=== PATIENT | male | born 1985 | race Caucasian/White ===

== ENCOUNTER 2024-01-10 20:01 | Outpatient (CLI) | payer MEDICAID | END 2024-01-10 23:59 | disposition left against medical advice (07) | LOC: EMS 20:01 | DX: I10 Essential (primary) hypertension (principal); R42 Dizziness and giddiness; R20.2 Paresthesia of skin; F41.9 Anxiety disorder, unspecified ==

== ENCOUNTER 2024-01-10 20:27 | Emergency (ER) | payer BC, MEDICAID ==
[2024-01-10 22:46] LABS: BASOPHILS # (AUTO) 0.1 10^3/uL (0.0-0.1); EOSINOPHILS # (AUTO) 0.2 10^3/uL (0.0-0.7); EOSINOPHILS % (AUTO) 3.8 %; HCT - HEMATOCRIT 45.5 % (42.0-52.0); HGB - HEMOGLOBIN 15.6 g/dL (14.0-18.0); LYMPHOCYTES # (AUTO) 1.7 10^3/uL (1.5-3.5); LYMPHOCYTES % (AUTO) 34.5 %; MEAN CORPUSCULAR HEMOGLOBIN 27.7 pg (27.0-31.0); MEAN CORPUSCULAR HGB CONC 34.3 g/dL (32.0-36.0); MEAN CORPUSCULAR VOLUME 80.7 fL (80.0-94.0); MEAN PLATELET VOLUME 10.2 fL (7.4-11.4); MONOCYTES # (AUTO) 0.6 10^3/uL (0.0-1.0); MONOCYTES % (AUTO) 12.7 %; NEUTROPHILS # (AUTO) 2.4 10^3/uL (1.5-6.6); PLT - PLATELET COUNT 337 10^3/uL (130-450); RED BLOOD COUNT 5.64 10^6/uL (4.70-6.10); RED CELL DISTRIBUTION WIDTH 12.5 % (12.0-15.0); WHITE BLOOD COUNT 5.1 x10^3/uL (4.8-10.8)
[2024-01-10 23:07] LABS: TROPONIN I HIGH SENSITIVITY 3.4 ng/L (2.3-19.7)
[2024-01-10 23:12] LABS: ALBUMIN 4.6 g/dL (3.2-5.5); ALBUMIN/GLOBULIN RATIO 1.6 (1.0-2.2); BILIRUBIN,TOTAL 0.7 mg/dL (0.2-1.0); CALCIUM 9.7 mg/dL (8.5-10.3); CREATININE 0.9 mg/dL (0.6-1.3); POTASSIUM 3.6 mmol/L (3.5-4.5); TOTAL PROTEIN 7.5 g/dL (6.4-8.9)
--- NOTE | 2024-01-10 23:42 | ED Physician Documentation ---
History of Present Illness - Stated complaint Stated Complaint: LIGHT HEADED/DIZZY/N - Chief complaint Chief Complaint: General - History obtained from History obtained from: Patient - History of Present Illness Timing: Today Pain level max: 2 Pain level now: 0 - Additonal information Additional information: Patient is a 38-year-old male who presents to the emergency department stating that he was diagnosed with hypertension today at his doctor's office, they did not want to start him on medications. He states that occasionally over the past several days he gets pain down his left arm and occasional tightness across his chest. He is not having the pain currently. Sometimes he has a headache as well. No vision changes. No focal numbness, tingling or weakness. No cardiac history. He does use marijuana. Does not smoke cigarettes. No shortness of breath, no lightheadedness or dizziness. He states that he was concerned about a potential heart attack. Review of Systems Constitutional: denies: Fever, Chills Ears: denies: Ear pain Nose: denies: Rhinorrhea / runny nose, Congestion Cardiac: denies: Chest pain / pressure, Palpitations Respiratory: denies: Dyspnea, Cough, Wheezing GI: denies: Abdominal Pain, Nausea, Vomiting, Diarrhea Skin: denies: Rash Musculoskeletal: denies: Neck pain, Back pain Neurologic: denies: Headache PD PAST MEDICAL HISTORY - Past Medical History Past Medical History: Yes Cardiovascular: Hypertension Respiratory: None Endocrine/Autoimmune: None GI: None : None Psych: None Musculoskeletal: None Derm: None - Past Surgical History Past Surgical History: Yes General: Cholecystectomy - Social History Does the pt smoke?: No Smoking Status: Never smoker Does the pt drink ETOH?: No Does the pt have substance abuse?: No Substance Use and Type: Marijuana - Immunizations Immunizations are current?: Yes - POLST Patient has POLST: No PD ED PE NORMAL - Vitals Vital signs reviewed: Yes - General General: Alert and oriented X 3, No acute distress - HEENT HEENT: Moist mucous membranes - Neck Neck: Supple, no meningeal sign - Cardiac Cardiac: RRR, Strong equal pulses - Respiratory Respiratory: No respiratory distress, Clear bilaterally - Abdomen Abdomen: Soft, Non tender, Non distended - Derm Derm: Warm and dry - Extremities Extremities: No edema, No calf tenderness / cord - Neuro Neuro: Alert and oriented X 3 - Psych Psych: Normal mood, Normal affect Results - Vitals Vitals: Vital Signs - 24 hr 01/11/24 00:18 Heart Rate 74 Respiratory 18 Rate Blood Pressure 154/115 H O2 Saturation 99 Oxygen O2 Source Room air - EKG (time done) 2245 EKG releavant findings:: EKG personally interpreted by author of this note. Relevant findings are: Rate: Rate (enter#) (68) Rhythm: NSR [place]: Normal Intervals: Normal [place] QRS: Normal Ischemia: Normal ST segments - Labs Labs: Laboratory Tests 01/10/24 01/10/24 22:43 22:43 WBC 5.1 RBC 5.64 Hgb 15.6 Hct 45.5 MCV 80.7 MCH 27.7 MCHC 34.3 RDW 12.5 Plt Count 337 MPV 10.2 Neut # (Auto) 2.4 Lymph # (Auto) 1.7 Howard # (Auto) 0.6 Eos # (Auto) 0.2 Baso # (Auto) 0.1 Absolute Nucleated RBC 0.00 Nucleated RBC % 0.0 Sodium 136 Potassium 3.6 Chloride 103 Carbon Dioxide 26 Anion Gap 7.0 BUN 11 Creatinine 0.9 Estimated GFR (MDRD) 94 Glucose 87 Calcium 9.7 Total Bilirubin 0.7 AST 21 ALT 29 Alkaline Phosphatase 56 Troponin I High Sens 3.4 Total Protein 7.5 Albumin 4.6 Globulin 2.9 Albumin/Globulin Ratio 1.6 Lipase 223 H - Rads (name of study) cxr Relevant Findings:: Final report received, See rad report PD Medical Decision Making - ED course Complexity details: reviewed results, re-evaluated patient, considered differential (No ST elevation [place], no aortic dissection, no PE, no tension pneumothorax, no aortic aneurysm), d/w patient ED course: 38-year-old male with atypical chest pain. No acute findings on EKG, chest x- ray. Negative high sensitive troponin after greater than 8 hours of symptoms. Asymptomatic here. No evidence of PE. No risk factors for PE. No hypoxia or respiratory distress. Recommend that he follow-up with his doctor for further care. Abdomen is soft, nontender nondistended on serial exam. Patient counseled regarding signs and symptoms for which I believe and urgent re- evaluation would be necessary. Patient with good understanding of and agreement to plan and is comfortable going home at this time This document was made in part using voice recognition software. While efforts are made to proofread this document, sound alike and grammatical errors may occur. Departure - Departure Disposition: 01 Home, Self Care Clinical Impression: Elevated lipase Chest pain Qualifiers: Chest pain type: unspecified Qualified Code(s): R07.9 - Chest pain, unspecified Hypertension Qualifiers: Hypertension type: unspecified Qualified Code(s): I10 - Essential (primary) hypertension Condition: Good Instructions: ED Chest Pain Atypical Unkn Cause Follow-Up: Isaias Webb, [employer], [employer], [employer] [Primary Care Provider] - Comments: Your testing does not show any acute abnormalities today. Your EKG, chest x-ray and troponin are normal, these are markers for heart attacks. Your lipase is mildly elevated at 223. You do not clinically have signs of pancreatitis, this should be rechecked with your doctor in 1 to 2 weeks. Please return if you worsen. Forms: PCP List Discharge Date/Time: 01/11/24 00:18
--- NOTE | 2024-01-10 23:57 | XRAY Report ---
PROCEDURE: Chest 1V INDICATIONS: Chest Pain TECHNIQUE: One view of the chest was acquired. COMPARISON: None. FINDINGS: Surgical changes and devices: None. Lungs and pleura: No pleural effusions or pneumothorax. Lungs are clear. Mediastinum: Mediastinal contours appear normal. Heart size is normal. Bones and chest wall: No suspicious bony lesions. Overlying soft tissues appear unremarkable. IMPRESSION: No acute cardiopulmonary process. Reviewed by: Heber Agosto MD on 01/10/2024 11:56 PM PDT Approved by: Heber Agosto MD on 01/10/2024 11:56 PM PDT Station ID: [id number]
[2024-01-11 00:29] VITALS: BP 154/115; O2SAT 99
== END 2024-01-11 00:18 | disposition home or self-care (01) ==
LOC: ED 20:27
DX: R07.89 Other chest pain (principal); I10 Essential (primary) hypertension; R74.8 Abnormal levels of other serum enzymes
CPT/HCPCS: 36415; 80053; 83690; 84484; 85025; 93005; 99284

== ENCOUNTER 2024-02-10 16:07 | Outpatient (CLI) | payer MEDICAID ==
[2024-02-10 20:36] LABS: BASOPHILS % (AUTO) 0.8 %; EOSINOPHILS # (AUTO) 0.5 10^3/uL (0.0-0.7); EOSINOPHILS % (AUTO) 9.4 %; HCT - HEMATOCRIT 41.9 % (42.0-52.0); LYMPHOCYTES # (AUTO) 1.9 10^3/uL (1.5-3.5); LYMPHOCYTES % (AUTO) 36.3 %; MEAN CORPUSCULAR HEMOGLOBIN 28.4 pg (27.0-31.0); MEAN CORPUSCULAR HGB CONC 33.4 g/dL (32.0-36.0); MEAN PLATELET VOLUME 10.9 fL (7.4-11.4); MONOCYTES # (AUTO) 0.4 10^3/uL (0.0-1.0); MONOCYTES % (AUTO) 7.3 %; NEUTROPHILS # (AUTO) 2.4 10^3/uL (1.5-6.6); PLT - PLATELET COUNT 281 10^3/uL (130-450); RED BLOOD COUNT 4.93 10^6/uL (4.70-6.10); RED CELL DISTRIBUTION WIDTH 12.9 % (12.0-15.0); WHITE BLOOD COUNT 5.2 x10^3/uL (4.8-10.8)
[2024-02-10 20:56] LABS: CHOL/HDL RATIO 4.5 (<5.0); CHOLESTEROL 197 mg/dL; HDL CHOLESTEROL 44 mg/dL; LDL CHOLESTEROL,CALCULATED 124 mg/dL; LDL/HDL RATIO 2.8 (<3.6); TRIGLYCERIDES 144 mg/dL; VLDL CHOLESTEROL 29 mg/dL
[2024-02-10 21:03] LABS: ESTIMATED AVERAGE GLUCOSE 97 mg/dL (70-100)
[2024-02-10 21:08] LABS: THYROID STIMULATING HORMONE 3.56 uIU/mL (0.34-5.60)
[2024-02-10 21:23] LABS: ALBUMIN 4.4 g/dL (3.2-5.5); ALBUMIN/GLOBULIN RATIO 1.5 (1.0-2.2); ALKALINE PHOSPHATASE 48 IU/L (42-121); ALT ALANINE AMINOTRANSFERASE 29 IU/L (10-60); AST ASPARTATE AMINOTRANSFERASE 18 IU/L (10-42); BILIRUBIN,TOTAL 0.4 mg/dL (0.2-1.0); BUN - BLOOD UREA NITROGEN 14 mg/dL (6-20); CALCIUM 9.1 mg/dL (8.5-10.3); CARBON DIOXIDE - CO2 28 mmol/L (21-32); CHLORIDE 107 mmol/L (101-111); CREATININE 0.9 mg/dL (0.6-1.3); GFR - MDRD 94 (>89); GLUCOSE 92 mg/dL (74-104); POTASSIUM 4.3 mmol/L (3.5-4.5); SODIUM 137 mmol/L (135-145); TOTAL PROTEIN 7.3 g/dL (6.4-8.9)
== END 2024-02-10 16:08 | disposition home or self-care (01) ==
LOC: LAB.N 16:07
DX: Z00.00 Encounter for general adult medical examination without abnormal findings (principal)
CPT/HCPCS: 36415; 80053; 80061; 83036; 83721; 84443; 85025